=== PATIENT | male | born 2005 | race Caucasian/White ===

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

== ENCOUNTER 2023-09-29 17:47 | Outpatient (REF) | payer OTHER, SELFPAY ==
[2023-09-29 21:38] LABS: HGB 16.5 g/dL (13.5-17.5); MCH 30.4 pg (27.0-33.0); MCHC 35.1 % (32.0-36.0); MCV 87 fL (80-95); MPV 10.3 fL (8.0-11.0); Platelet Count 364 10^3/uL (130-400); RBC 5.42 10^6/uL (4.36-5.78); RDW 11.8 % (11.8-14.1); RDW-SD 37.3 fL; WBC 9.48 10^3/uL (4.4-10.8)
[2023-09-29 21:50] LABS: ALT 94 U/L (16-63); AST 44 U/L (15-37); Albumin 4.8 g/dL (3.4-5.0); Alkaline Phosphatase 74 U/L (46-116); Anion Gap 12.5 mmol/L (3-11); BUN 16 mg/dL (7-18); Bilirubin, Total 0.6 mg/dL (0.2-1.0); CO2 26.5 mmol/L (21.0-32.0); CREATININE 1.3 mg/dL (0.70-1.30); Calcium 9.9 mg/dL (8.5-10.1); Chloride 102 mmol/L (98-107); Estimated GFR 81.16 (mL/min/1.73m2); Glucose 101 mg/dL (74-106); Sodium 141 mmol/L (136-145); Total Protein 8.1 g/dL (6.4-8.2)
== END 2023-09-29 17:48 | disposition home or self-care (01) ==
LOC: LBN 17:47
PROVIDERS: PCP Family Medicine; Visit Provider Nurse Practitioner Family
DX: R19.8 Other specified symptoms and signs involving the digestive system and abdomen (principal); R74.01 Elevation of levels of liver transaminase levels; R10.32 Left lower quadrant pain
CPT/HCPCS: 80053; 85027; 87070; 87205

== ENCOUNTER 2023-12-09 05:22 | Outpatient (CLI) | payer OTHER, SELFPAY ==
--- NOTE | 2023-12-09 14:07 | W.NUTRFU ---
Date of service: 12/09/23 Time of Service: 13:00 Nutrition Note NOTE: Ezequiel in today for nutrition referral regarding weight mgt with prediabetes dx also noted on referral form - however pt denies ever being told of a prediabetes dx and I cannot see this on his current problem list and do not see diagnostics indicating this (just a couple high random glucose levels). Pt does report that his provider office called just before today's visit to confirm fatty infiltration of the liver and he is upset at this new - considers it a red flag to start changing things. Currently no meds, no nutrition supps at home. Currently lives with mother. 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 Is allowed breaks and has environment at work conducive to allowing him to eat healthy. Currently skips breakfast and eats later at night - snacks after home after 9m sometimes. Is unaware of concepts like carb goal and how much added sugar he should be under (or consumes regularly). We reviewed some items that he could address for the biggest bang for his latham - I suggested taking MVI and 4,000IU vitamin D3 for 2 months then 2,000IU permanently- Also suggested taking milk thistle standardized to 80% silymarin for liver support I suggested no more than 30g added sugar as part of his goal for 220g total carbs per day coming from less refined sources like beans/lentils/squash/less refined oats/breads, etc... We reviewed servings size for 15g amounts and gave some materials to support. I suggested hitting minimum of 30g fiber (increasing slowly if having GI symptoms) His water intake is admittedly problematic - recommended 80oz water per day. Encouraged eating breaffast and tapering off so dinner is not so big and no snacking after dinner We have a followup scheduled for 01/19 - he has my contact info should he need any support before follow up Time Spent in Nutritional Counseling and Treatment: 45 minutes
== END 2023-12-09 05:23 | disposition home or self-care (01) ==
LOC: DS 05:22
PROVIDERS: PCP Family Medicine; Visit Provider Dietitian, Registered
DX: E66.8 Other obesity (principal); K76.0 Fatty (change of) liver, not elsewhere classified; Z71.3 Dietary counseling and surveillance; R74.8 Abnormal levels of other serum enzymes
CPT/HCPCS: 00123; 97802

== ENCOUNTER 2024-07-13 15:02 | Outpatient (REF) | payer OTHER, SELFPAY | END 2024-07-13 15:03 | disposition home or self-care (01) | LOC: LBN 15:02 | PROVIDERS: PCP Family Medicine; Visit Provider Nurse Practitioner Family | DX: R19.8 Other specified symptoms and signs involving the digestive system and abdomen (principal) | CPT/HCPCS: 87070; 87205 ==

== ENCOUNTER 2024-08-21 18:44 | Emergency (ER) | payer OTHER, SELFPAY ==
[2024-08-21 18:52] VITALS: BP 150/80; PULSE 129; RESP 20; TEMP 36.6; O2SAT 99
--- NOTE | 2024-08-21 19:05 | ED.GENADUL_ITS ---
Discharge Plan Disposition Patient Disposition: Home Discharge Details Clinical Impression: Injury of left ankle Primary Care Provider: Adis Araya ED Provider: Raheem Barajas Home Meds and New Rx's Prescriptions: No Action No Known Home Meds Discharge Instructions Instructions: Walking Boot Additional Instructions: No fracture seen on your x-ray today, but you likely have a sprain or ligamentous injury. Use the boot for comfort. You can use crutches that you have at home for weightbearing as tolerated. Keep leg elevated, ice as needed, Motrin and Tylenol for pain If symptoms are not improving, you may need to follow-up with your primary care doctor for reevaluation and additional advanced imaging of your ankle HPI General Date/Time Provider Initiated Documentation: 08/21/24 18:59 . Limitations to Documentation: no limitations . Information obtained by: patient . HPI Narrative: 18-year-old gentleman without significant past medical history presents for evaluation of left ankle pain. He reports that about an hour prior to arrival, he was doing some exercise and will rolled his ankle and he rolled off of the platform that he was on and went onto the ground landing on the outside of his left ankle. He says that he put a little bit of weight on it initially to hobble over to his phone but otherwise he kept his weight off of it and has not attempted again to walk on it. He reports pretty significant pain with attempted ambulation. Related Data Home Medications ?Medication ?Instructions ?Recorded ?Confirmed Unknown [No Known Home Meds] 08/21/24 08/21/24 Allergies Allergy/AdvReac Type Severity Reaction Status Date / Time amoxicillin Allergy Unknown RASH Verified 08/21/24 18:55 General Stated Complaint: Orthopedic TREVOR: 4 Exam Narrative Exam Narrative: Review of Systems: All systems reviewed & are unremarkable except as noted in HPI and below Well-developed, no acute distress NCAT Unlabored respiratory effort Left knee unremarkable, no proximal tib-fib tenderness, calf nontender, there is tenderness around the ankle and distal tib-fib, left lateral malleolus is fairly swollen, no significant bruising or obvious deformity, good cap refill neurovascularly intact 2+ DP pulse Course Vital Signs Vital signs: Vital Signs Temperature 36.6 C 08/21/24 18:52 Pulse 129 H 08/21/24 18:52 Respiratory Rate 20 08/21/24 18:52 Blood Pressure 150/80 H 08/21/24 18:52 Pulse Oximetry 99 08/21/24 18:52 Temperature 36.6 C 08/21/24 18:52 Pulse 129 H 08/21/24 18:52 Respiratory Rate 20 08/21/24 18:52 Blood Pressure 150/80 H 08/21/24 18:52 Blood Pressure Position Sitting 08/21/24 18:52 Pulse Oximetry 99 08/21/24 18:52 Oxygen Delivery Method Room Air 08/21/24 18:52 Oxygen Flow Rate 0 08/21/24 18:52 Pain Level 3 08/21/24 19:02 Medical Decision Making Emergent evaluation of acute left leg injury. Initial differential includes fracture, ligamentous injury, unlikely dislocation. Will get x-ray imaging to evaluate X-ray of left tib-fib and ankle reviewed and independently interpreted: No acute bony process. Patient provided with a walking boot to use. Offered crutches but says he has some at home. Recommend weightbearing as tolerated. Motrin and Tylenol as needed for pain. Follow-up with PCP if symptoms are not improving. Quality:SDOH Health Related Social Needs: No Data to Display PFSH All Active Problems (Updated 08/21/24 @ 19:39 by Raheem Barajas MD) Injury of left ankle (Acute) Elevated liver enzymes (Acute) Verruca (Acute) Elevated BP without diagnosis of hypertension (Acute) Obesity without serious comorbidity (Acute) Umbilical discharge (Acute) with bleeding, bright red blood x 2 Medical History AC separation, type 2 (04/17/19) Salter-Bullock type I fracture of distal end of left fibula Salter-bullock type ii physeal fracture of lower end of left tibia, subsequent encounter for fracture with routine healing (06/18/17) Salter-Bullock type II fracture of distal end of fibula (05/15/17) (L) Family History Grandmother Coronary artery disease bypass surgery age 50's Social History Smoking/Tobacco Use Status: Never Smoking risk assessment performed?: Yes Alcohol Intake: current Alcohol Intake frequency: holidays/special occasions only Drug use: Occasionally Substance use type: marijuana Counseling given: Yes Housing: house Communication Needs: None Education Level: high school Details: [employer] 10th grade Pets and animals: Yes (2 dogs) Pets and animals: dog(s) Current gender identity: male Seatbelt use: always Helmet use: Yes Helmet use: always Water heater temp set <120 deg: Yes Fire extinguisher in home: Yes Carbon monox detector in home: Yes Firearms in home: Yes Firearms unloaded and locked: Yes Do you feel safe at home: Yes Do you feel safe in your relationship?: Yes
[2024-08-21 19:14] VITALS: BP 140/68; PULSE 102; RESP 20; O2SAT 97
--- NOTE | 2024-08-21 19:33 | DI.RAD_ITS ---
Exam(s) XR ANKLE LT COMPLETE EXAM: XR ANKLE LT COMPLETE CLINICAL HISTORY: left ankle injury. TECHNIQUE: 2D digital imaging was performed. COMPARISON: CR XR ANKLE LT COMPLETE from 04/27/2018 FINDINGS: 3 views There is soft tissue swelling over the lateral aspect of the ankle but no evidence of acute fracture or widening the ankle mortise. Talar dome un remarkable. No degenerative changes. No incidental os seous lesions. No evidence of osseous tarsal coalition. IMPRESSION: No acute osseous findings in the ankle DATA REPOSITORY: RADIATION DOSE DELIVERED:
--- NOTE | 2024-08-21 19:34 | DI.RAD_ITS ---
Exam(s) XR TIB/FIB LT EXAM: XR TIB/FIB LT CLINICAL HISTORY: leg injury. TECHNIQUE: 2D digital imaging was performed. COMPARISON: CR XR tib/fib LT from 04/27/2018 FINDINGS: Two views. No evidence of fracture. Bone density normal. No osseous lesions. No radiopaque foreign bodies. IMPRESSION: No significant osseous findings in the tibia and fibula. DATA REPOSITORY: RADIATION DOSE DELIVERED:
--- OUTSIDE RECORDS SUMMARY | 2024-08-21 19:44 | XMS_ITS | Encounter Summary ---
Author Organization [facility] [place] [address] Care Team Providers Care Steward/Stewardess Railroad Dining Car Name Role Phone Jose M Kruse MD Primary Care Provider [phone] Reason for Visit * Reason Comments Follow-up Encounter Details Date Type Department Care Team (Late st Contact Info) Description 08/10/2013 4:30 PM EST Office Visit Dermatology at [address] [id number] Min Caballero MD [address] [place] [address], [facility] [place] [address] Molluscum contagiosum (Primary Dx); Verruca vulgaris; Eczematous dermatitis Social History Tobacco Use Types Packs/Day Years Used Date Smoking Tobacco: Never Sex and Gender Information Value Date Recorded Sex Assigned at Not on file Gender Identity Not on file Sexual Orientation Not on file documented as of this encounter Progress Notes * Min Caballero MD - 08/10/2013 5:23 PM EST Problem is followup molluscum contagiosum. Ezequiel follows up with his father, Ricki. The molluscum really have cleared up nicely underneath the right axillary vault with just one remaining. However, he gets erythematous eczematous patches that come up with in that area from time to time without any clear-cut frictional etiology or other trigger. He is not using underarm deodorant. He is quite active in sports and enjoys basketball, but he never has any rash under the left arm. He also has some lesions on the left knee. Physical examination confirms a single molluscum in the right axillary vault but patchy erythema present there today, mild eczematous dermatitis. He has verruca and a molluscum also on the left knee. Assessment and Plan: 1. Verruca vulgaris and molluscum, left knee and right axillary vault. a. LN2 times two applied to these sites today. b. Recommend I see him in another two weeks for repeat check. 2. Eczematous dermatitis, right axillary vault. a. Prescription given for 2.5% hydrocortisone cream, 90 grams dispensed in two 45-gram tubes so that he can have one for mom's house and one for dad's, as they are estranged. Recommend return to clinic in two weeks for repeat check. Note: Congratulated Ezequiel and his father, Bc, that really he has done beautifully with the molluscum clearing up. Encouraged him to switch from the Sarna lotion that they have been using recently just to using the 2.5% hydrocortisone cream instead. documented in this encounter Plan of Treatment Not on file documented as of this encounter Visit Diagnoses Diagnosis Molluscum contagiosum- Primary Verruca vulgaris Viral warts, unspecified Eczematous dermatitis Contact dermatitis and other eczema, due to unspecified cause documented in this encounter Care Teams Steward/Stewardess Railroad Dining Car Relationship Specialty Start Date End Date Jose M Kruse MD [address] [facility] [place] [address] PCP - General 10/12/12 12/10/21 documented as of this encounter
--- OUTSIDE RECORDS SUMMARY | 2024-08-21 19:44 | XMS_ITS | Encounter Summary ---
[place] [address] Care Team Providers Care Shrub Grower Name Role Phone Adis Araya MD Primary Care Provider [phone] Encounter Details Date Type Department Care Team (Latest Contact Info) Description 06/08/2024 Travel Social History Tobacco Use Types Packs/Day Years Used Date Smoking Tobacco: Never Sex and Gender Information Value Date Recorded Sex Assigned at Not on file Gender Identity Not on file Sexual Orientation Not on file documented as of this encounter Plan of Treatment Not on file documented as of this encounter Visit Diagnoses Not on filedocumented in this encounter Care Teams Shrub Grower Relationship Specialty Start Date End Date Adis Araya MD [address] [place] [address] PCP - General Family Medicine 12/02/23 documented as of this encounter
--- OUTSIDE RECORDS SUMMARY | 2024-08-21 19:44 | XMS_ITS | Encounter Summary ---
Author Organization [facility] Address [facility] [place] [address] Care Team Providers Care Cable Splicer Assistant Name Role Phone Adis Araya MD Primary Care Provider [phone] Reason for Visit * Consultation (Routine) - Closed Specialty Diagnoses / Procedures Referred By Contac t Referred To Contact Dermatology Diagnoses Viral warts, unspecified type Adis Araya MD [address] [place] [address] [address] [facility] [address] [place] [address] [facility] [address] [place] [address] Referral ID Status Reason Start Date Expiration Date V isits Requested Visits Authorized [id number] Closed Consult, Test & Treat PCP Updated and/or Approved 2023 12/01/2024 6 6 Encounter Details Date Type Department Care Team (Late st Contact Info) Description 06/08/2024 8:00 AM EST Office Visit Dermatology at [facility] [address] [place] [id number] Susan Hernandez MD [facility] [address] [place] [address] Viral warts, unspecified type; Hand eczema Social History Tobacco Use Types Packs/Day Years Used Date Smoking Tobacco: Never Sex and Gender Information Value Date Recorded Sex Assigned at Not on file Gender Identity Not on file Sexual Orientation Not on file documented as of this encounter Progress Notes * Susan Hernandez MD - 06/08/2024 8:00 AM EST Images from the original note were not included. DEPARTMENT OF DERMATOLOGY Medical Dermatology Clinic Provider: Susan Hernandez MD Patient's preferred name Ezequiel Preferred contact method for results []Phone []myD-H [x]Letter Detailed phone message OK? Y Are there any other people with whom we may discuss your care? 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 Patient is new and self- referred to the clinic for viral warts. -- Warts on the left hand that resolved on their own. When they were present they would be on the tip of his finger and make it very swollen. Present for ~ 10 years. Treated with LN2 in the past without improvement. -- Rash on the right ring finger that has been present for ~ 1-2 years. Very itchy. Not currently treating. Treated in the past with hydrocortisone multiple times a day without any improvement. Medications: Reviewed in eD-H Allergies: Reviewed in eD-H Skin Examination: Focused skin examination of the hands was normal with the exception of the findings below. Assessment/Plan #. Wart (Verruca Vulgaris) - Resolved - Discussed viral etiology (relative of HPV in skin) and rationale for therapy directed at reducingviral load and virus ultimately being controlled by immune response. - Discussed HPV vaccine briefly, can discuss with PCP if interested #. Hand Eczema - erythematous scaly plaque on the right third web space, dorsal fingers, and hand - Discussed etiology and treatment options - Discussed that latex could be a common allergen. I recommend nitrile gloves. - Start Rx: triamcinolone 0.1% ointment apply BID to hands x 2-3 weeks, take 1 week off, repeat as needed - Recommend moisturizing especially after applying triamcinolone RTC: PRN []Note routed to area secretary []Recall placed in scheduling system []Appointment scheduled at checkout Scribe attestation: Sonam Arriaga CMA has performed the documentation for this encounter in the presence of and acting as a scribe for Susan Hernandez MD. I performed the above scribed service and agree with the accuracy of the documentation in this encounter. Reviewed and signed by: Susan Hernandez MD Dermatology [facility] documented in this encounter Plan of Treatment Not on file documented as of this encounter Visit Diagnoses Diagnosis Viral warts, unspecified type Hand eczema Contact dermatitis and other eczema, due to unspecified cause documented in this encounter Care Teams Cable Splicer Assistant Relationship Specialty Start Date End Date Adis Araya MD [address] [place] [address] PCP - General Family Medicine 12/02/23 documented as of this encounter
--- OUTSIDE RECORDS SUMMARY | 2024-08-21 19:44 | XMS_ITS | Encounter Summary ---
Author Organization [place] [address] Care Team Providers Care Bouffant Curtain Machine Tender Name Role Phone Adis Araya MD Primary Care Provider [phone] Reason for Referral * Consultation (Routine) - Closed Specialty Diagnoses / Procedures Referred By Contac t Referred To Contact Dermatology Diagnoses Viral warts, unspecified type Adis Araya MD [address] [place] [address] [facility] D[facility]at[facility] [address] [place] [address] Referral ID Status Reason Start Date Expiration Date V isits Requested Visits Authorized [id number] Closed Consult, Test & Treat PCP Updated and/or Approved 2023 12/01/2024 6 6 Encounter Details Date Type Department Care Team (Late st Contact Info) Description 2023 Transcribe Orders eDH Incoming Referrals [phone] Adis Araya MD [address] [place] [address] Viral warts, unspecified type Social History Tobacco Use Types Packs/Day Years Used Date Smoking Tobacco: Never Sex and Gender Information Value Date Recorded Sex Assigned at Not on file Gender Identity Not on file Sexual Orientation Not on file documented as of this encounter Plan of Treatment Scheduled Referrals Name Type Priority Associated Diagnoses Orde r Schedule Referral to Dermatology Outpatient Referral Routine Viral Warts, Unspecified Type Ordered: 2023 documented as of this encounter Visit Diagnoses Diagnosis Viral warts, unspecified type documented in this encounter Care Teams Bouffant Curtain Machine Tender Relationship Specialty Start Date End Date Adis Araya MD [address] [place] [address] PCP - General Family Medicine 12/02/23 documented as of this encounter
--- OUTSIDE RECORDS SUMMARY | 2024-08-21 19:44 | XMS_ITS | Encounter Summary ---
[place] [address] Care Team Providers Care Gimp Tacker Name Role Phone Jose M Kruse MD Primary Care Provider [phone] Reason for Visit * Reason Comments Follow-up Encounter Details Date Type Department Care Team (Late st Contact Info) Description 11/17/2012 3:15 PM EDT Office Visit Dermatology [address] [facility] [address] [place] [address] Min Caballero MD [address] [facility], [facility] [place] [address] Molluscum contagiosum (Primary Dx) Social History Tobacco Use Types Packs/Day Years Used Date Smoking Tobacco: Never Sex and Gender Information Value Date Recorded Sex Assigned at Not on file Gender Identity Not on file Sexual Orientation Not on file documented as of this encounter Progress Notes * Min Caballero MD - 11/17/2012 3:35 PM EDT Problem is followup molluscum contagiosum. Ezequiel follows up and is here with his father, Ricki. He has had two treatments so for and has had good progress. Last time I left the Canthacur PS in the green bottle on for about an hour and 15 minutes to an hour and a half, and he had a fairly vigorous but acceptable reaction. Physical examination reveals a pleasant 6-year-old who continues to have perhaps about 10 molluscum present underneath the right axillary vault. The left is entirely clear. He has no other lesions. He does have some dermatitis today present in the right axillary vault area. Assessment and Plan: Molluscum contagiosum. a. Today Canthacur PS in the green bottle was applied to be left on for one hour then wash off. Return to clinic in two weeks. b. Reassured patient that we are making progress, which they also can see and agree, but we will need to continue visits until these have been eradicated. documented in this encounter Plan of Treatment Not on file documented as of this encounter Visit Diagnoses Diagnosis Molluscum contagiosum- Primary documented in this encounter Care Teams Gimp Tacker Relationship Specialty Start Date End Date Jose M Kruse MD [address] [place] [address] PCP - General 10/12/12 12/10/21 documented as of this encounter
--- OUTSIDE RECORDS SUMMARY | 2024-08-21 19:44 | XMS_ITS | Encounter Summary ---
[place] [address] Care Team Providers Care Contact Center Engineer Name Role Phone Jose M Kruse MD Primary Care Provider [phone] Reason for Visit * Reason Comments Skin Check Encounter Details Date Type Department Care Team (Late st Contact Info) Description 10/12/2012 4:45 PM EDT Office Visit Dermatology [address] [place] [address] [address] [place], [place] [id number] Min Caballero MD [address] [facility], [facility] [place] [address] Molluscum contagiosum (Primary Dx) Social History Tobacco Use Types Packs/Day Years Used Date Smoking Tobacco: Never Sex and Gender Information Value Date Recorded Sex Assigned at Not on file Gender Identity Not on file Sexual Orientation Not on file documented as of this encounter Progress Notes * Min Caballero MD - 10/12/2012 5:35 PM EDT Problem is rash. Ezequiel is an 6-year-old who comes in with his father, Ricki. He has had a rash in both armpits now for a number of months. Apparently at one point they tried doctor Canthacur PS was applied with plus/minus benefit. Physical examination reveals a pleasant 6-year-old who has molluscum present today, present not only within the right axillary vault but extending down the right flank. He has few, if any, present on the left. He has no other areas of dermatitis. Assessment and Plan: Molluscum contagiosum. a. Discussed diagnosis with patient, Ezequiel, and his father, Ricki. edgar. Reassured them. c. Recommended that we continue Canthacur but using Canthacur in the green bottle, the 0.75% strength, to be left on for one hour then wash off, and return to clinic in two weeks. d. For itching of this site, would recommend Sarna lotion, this in preference to 1% hydrocortisone cream or in preference to triamcinolone 0.1% cream that his brother uses for his eczema. Copy: Jose M Kruse M.D. documented in this encounter Plan of Treatment Not on file documented as of this encounter Visit Diagnoses Diagnosis Molluscum contagiosum- Primary documented in this encounter Care Teams Contact Center Engineer Relationship Specialty Start Date End Date Jose M Kruse MD [address] [place] [address] PCP - General 10/12/12 12/10/21 documented as of this encounter
--- OUTSIDE RECORDS SUMMARY | 2024-08-21 19:44 | XMS_ITS | Clinical Summary ---
Author Organization [facility] Address [facility] [place] [address] Care Team Providers Care Client Advocate Name Role Phone Adis Araya MD Primary Care Provider [phone] Allergies Active Allergy Reactions Criticality Noted Date Comments Penicillins 10/12/2012 Medications Medication Sig Dispensed Refills Start Date End Date Status hydrocortisone 0.5 % cream Apply topically 2 times daily. Active triamcinolone (Kenalog) 0.1 % OintmentIndications:H and eczema Apply twice daily to the affected areas of the hand x2-3 weeks, then take one week off, and repeat as needed. 80 g 2 06/08/2024 Active Active Problems Problem Noted Date Diagnosed Date Irritant contact dermatitis 08/24/2013 Verruca vulgaris 08/10/2013 Eczematous dermatitis 08/10/2013 Molluscum contagiosum 10/30/2012 Encounters Date Type Department Care Team Description 06/08/2024 8:00 AM EST Office Visit Dermatology at [address] [place] [id number] Susan Hernandez MD Viral warts, unspecified type; Hand eczema 06/08/2024 Travel from Last 3 Months Social History Tobacco Use Types Packs/Day Years Used Date Smoking Tobacco: Never Sex and Gender Information Value Date Recorded Sex Assigned at Not on file Gender Identity Not on file Sexual Orientation Not on file Plan of Treatment Health Maintenance Due Date Last Done Comments HPV vaccine (1 - Male 3-dose series) 12/01/2018 HIV screen 12/01/2021 Hepatitis C Screening 12/01/2021 Hepatitis B vaccine (0-59 yrs) (1) 12/01/2022 Tetanus/Diphtheria/Pertussis Vaccines (1 - Tdap) 12/01 Covid-19 Vaccine ( - 2023- season) 2024 Influenza (Flu) vaccine (1 o f 1 - Influenza standard series) 03/28/2024 Care Teams Client Advocate Relationship Specialty Start Date End Date Adis Araya MD [address] [place], [place] [id number] PCP - General Family Medicine 12/02/23
--- OUTSIDE RECORDS SUMMARY | 2024-08-21 19:44 | XMS_ITS | Encounter Summary ---
[place] [address] Care Team Providers Care Metal Turner Name Role Phone JoseM Kruse MD Primary Care Provider [phone] Reason for Visit * Reason Comments Follow-up Encounter Details Date Type Department Care Team (Late st Contact Info) Description 08/24/2013 3:45 PM EST Office Visit Dermatology at [address] [id number] Min Caballero MD [address] [facility] [place] [address] Irritant contact dermatitis (Primary Dx) Social History Tobacco Use Types Packs/Day Years Used Date Smoking Tobacco: Never Sex and Gender Information Value Date Recorded Sex Assigned at Not on file Gender Identity Not on file Sexual Orientation Not on file documented as of this encounter Progress Notes * Min Caballero MD - 08/24/2013 4:23 PM EST Problem: Followup molluscum contagiosum. Ezequiel follows up with his father, Ricki. He has done well. Physical examination reveals that all the molluscum now are gone from underneath the right axillary vault and also the sites over the left anterior knee appear to be healed as well. He has a little bit of patchy eczema still on the right axillary vault. Assessment and Plan: Verruca vulgaris and molluscum, left knee, right axillary vault. a. Appear resolved. b. Recommend that patient use just the 2.5% hydrocortisone cream for the minimal eczematous dermatitis of the right axillary vault until rash has healed. c. Recommend return to clinic here just now on a p.r.n. basis. documented in this encounter Plan of Treatment Not on file documented as of this encounter Visit Diagnoses Diagnosis Irritant contact dermatitis- Primary Contact dermatitis and other eczema, due to unspecified cause documented in this encounter Care Teams Metal Turner Relationship Specialty Start Date End Date Jose M Kruse MD [address] [place] [address] PCP - General 10/12/12 12/10/21 documented as of this encounter
--- OUTSIDE RECORDS SUMMARY | 2024-08-21 19:44 | XMS_ITS | Encounter Summary ---
[place] [address] Care Team Providers Care Test Engine Evaluator Name Role Phone Jose M Kruse MD Primary Care Provider [phone] Reason for Visit * Reason Comments Follow-up Encounter Details Date Type Department Care Team (Late st Contact Info) Description 10/30/2012 3:30 PM EDT Office Visit Dermatology [facility] [address] [place] [address] Min Caballero MD [address] [facility] [place] [address] Molluscum contagiosum (Primary Dx) Social History Tobacco Use Types Packs/Day Years Used Date Smoking Tobacco: Never Sex and Gender Information Value Date Recorded Sex Assigned at Not on file Gender Identity Not on file Sexual Orientation Not on file documented as of this encounter Progress Notes * Min Caballero MD - 10/30/2012 5:32 PM EDT Problem: Molluscum contagiosum. Ezequiel follows up and has done well. He is here with his father, Ricki. The itching, the eczematous dermatitis is fully cleared up with the Sarna lotion, although he still has some molluscum. Physical examination reveals a pleasant 6-year-old who continues to have quite a number of molluscum present today underneath the right axillary vault, extending down by the right flank, with none now present on the left. The dermatitis previously present in the right axillary vault is healed. Assessment and Plan: 1. Molluscum contagiosum. a. Today, Canthacur PS in the green bottle was applied to be left on for one hour, then wash off, and return to clinic in two weeks. b. Reassured patient about keratosis pilaris on lateral arms. c. Discussed the possible need for yet another treatment beyond the next one. Reassured him that we are making progress and was happy to hear that he had fairly limited irritant reaction to the one hour application time, which I think we should continue with. COPY: Jose M Kruse M.D. documented in this encounter Plan of Treatment Not on file documented as of this encounter Visit Diagnoses Diagnosis Molluscum contagiosum- Primary documented in this encounter Care Teams Test Engine Evaluator Relationship Specialty Start Date End Date Jose M Kruse MD [address] [place] [address] PCP - General 10/12/12 12/10/21 documented as of this encounter
[2024-08-21 19:53] VITALS: BP 140/80; PULSE 100; RESP 18; TEMP 36.8; O2SAT 97
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
--- NOTE | 2024-09-09 07:12 | NUR.NOTE ---
Accessed Pt chart to print the provider notes for [facility]
== END 2024-08-21 19:50 | disposition home or self-care (01) ==
PROVIDERS: Emergency Provider Emergency Medicine; PCP Family Medicine
DX: S99.812A Other specified injuries of left ankle, initial encounter (principal); X50.1XXA Overexertion from prolonged static or awkward postures, initial encounter; Y93.B9 Activity, other involving muscle strengthening exercises; Y92.39 Other specified sports and athletic area as the place of occurrence of the external cause; Y99.8 Other external cause status
CPT/HCPCS: 99283; 73590; 73610

== ENCOUNTER 2025-05-07 00:07 | Emergency (ER) | payer OTHER, SELFPAY ==
--- NOTE | 2025-05-06 23:45 | RT.EKG_ITS ---
APPROVED REPORT Exam: Resting ECG Reason for Exam: chest pain Patient Location: E HR:116 bpm ECG Measurements Heart Rate 116 [address] 144 P 46 QRSd 85 QRS 56 QT 292 T -2 QTc 406 Conclusion Sinus tachycardia...rate> 99 Normal [place]/Interval NS ST flattening inferior/lateral leads
[2025-05-07] VITALS (21 sets, daily range): BP systolic 140–194; BP diastolic 84–140; PULSE 118–149; RESP 12–35; TEMP 36.9; O2SAT 96–98
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
[2025-05-07] MEDS: Lactated Ringers 1,000 ML 1000 ML IV ×2 (00:15→02:06)
[2025-05-07 00:17] LABS: Abs Immature Grans 0.19 10^3/uL (0.0-0.06); HCT 50.7 % (40.0-50.0); HGB 17.5 g/dL (13.5-17.5); Immature Grans % 1.7 %; MCH 30.9 pg (27.0-33.0); MCHC 34.5 % (32.0-36.0); MCV 90 fL (80-95); MPV 9.5 fL (8.0-11.0); Platelet Count 324 10^3/uL (130-400); RBC 5.66 10^6/uL (4.36-5.78); RDW 12.1 % (11.8-14.1); RDW-SD 40.1 fL; WBC 11.32 10^3/uL (4.4-10.8)
[2025-05-07 00:35] LABS: ALT 68 U/L (16-63); AST 37 U/L (15-37); Albumin 4.7 g/dL (3.4-5.0); Alkaline Phosphatase 88 U/L (46-116); Anion Gap 11.9 mmol/L (3-11); BUN 20 mg/dL (7-18); Bilirubin, Total 0.3 mg/dL (0.2-1.0); CO2 26.1 mmol/L (21.0-32.0); Calcium 8.7 mg/dL (8.5-10.1); Chloride 103 mmol/L (98-107); Estimated GFR 80.15 (mL/min/1.73m2); Glucose 147 mg/dL (74-106); Lipase 29 U/L (<78); Potassium 3.8 mmol/L (3.5-5.1); Sodium 141 mmol/L (136-145); Total Protein 8.7 g/dL (6.4-8.2)
[2025-05-07] MEDS: Normal Saline - Diluent 50 ML VIAL IJ (00:51)
[2025-05-07] MEDS: Omnipaque 350 MG/ML 100 ML BTL IJ (00:51)
[2025-05-07] MEDS: Normal Saline Flush 10 ML SYR IVP (00:52)
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
[2025-05-07 02:01] LABS: Kit/Specimen SENT
[2025-05-07 02:21] LABS: Glucose Negative (Negative)
[2025-05-07 02:27] LABS: RBC Negative HPF (0-2); WBC Negative HPF (0-5)
[2025-05-07 02:28] LABS: C & S Indicated? No
[2025-05-07 02:38] LABS: Cannabinoids THC Negative (Negative); METHADONE URINE SCREEN Negative (Negative)
[2025-05-07] MEDS: Ketorolac 15 MG/ML VIAL IVP (03:12)
--- NOTE | 2025-05-07 03:29 | DI.RAD_ITS ---
Exam(s) XR ELBOW RT COMPLETE EXAM: XR ELBOW RT COMPLETE CLINICAL HISTORY: trauma. TECHNIQUE: 2D digital imaging was performed of the left elbow. Three images were obtained. AP, lateral and oblique views were obtained. COMPARISON: CR XR elbow RT complete from 07/02/2018 FINDINGS: BONES: No acute fracture is present. No bony destructive lesion is seen. JOINTS: The elbow is normally aligned. No joint effusion is seen. SOFT TISSUE: Normal. IMPRESSION: 1. Unremarkable radiographs of the right elbow. 2. The preliminary [facility] report was reviewed. DATA REPOSITORY: RADIATION DOSE DELIVERED:
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
== END 2025-05-07 03:57 | disposition home or self-care (01) ==
PROVIDERS: Emergency Provider Emergency Medicine; PCP Family Medicine
DX: S00.81XA Abrasion of other part of head, initial encounter (principal); F10.929 Alcohol use, unspecified with intoxication, unspecified; R07.9 Chest pain, unspecified; R11.0 Nausea; M79.601 Pain in right arm; V49.40XA Driver injured in collision with unspecified motor vehicles in traffic accident, initial encounter
CPT/HCPCS: 74177; 80053; 80307; 83690; 86850; 86900; 86901; 93005; 96361; 96374; 99291; 70450; 71260; 72125; 73080; 80320; 81003; 81015; 85025; 93010; J1885; J3490

== ENCOUNTER 2025-05-07 09:13 | Emergency (ER) | payer OTHER, SELFPAY ==
[2025-05-07 09:20] VITALS: BP 148/93; PULSE 104; RESP 17; TEMP 37.3; O2SAT 97
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
[2025-05-07 10:00] VITALS: BP 160/88; PULSE 95; RESP 18; O2SAT 99
== END 2025-05-07 10:08 | disposition home or self-care (01) ==
PROVIDERS: Emergency Provider Emergency Medicine; PCP Family Medicine
DX: Z71.1 Person with feared health complaint in whom no diagnosis is made (principal)
CPT/HCPCS: 99282; 99281